=== PATIENT | male | born 1985 | race Caucasian/White ===

== ENCOUNTER 2017-10-15 00:39 | Emergency (ER) | payer SELFPAY ==
[~2017-10-15] VITALS: Ht 177.8 cm; Wt 113.0 kg
[2017-10-15 00:45] VITALS: BP 161/118
[2017-10-15] MEDS ORDERED: HALOPERIDOL LACTATE 5MG/ML VIAL IM STA (01:07)
[2017-10-15] MEDS ORDERED: LORAZEPAM 2MG/ML CPJ IM STA (01:07)
[2017-10-15] MEDS ORDERED: SODIUM CHLORIDE 0.9% 1,000 ML IV ONE (01:07)
[2017-10-15] MEDS ORDERED: DIPHENHYDRAMINE 50MG/ML VIAL IM STA (01:07)
== END 2017-10-15 02:06 | disposition left against medical advice (07) ==
LOC: ER 00:39
DX: T43.621A Poisoning by amphetamines, accidental (unintentional), initial encounter (principal); F15.129 Other stimulant abuse with intoxication, unspecified; R45.1 Restlessness and agitation; Z78.1 Physical restraint status; R00.0 Tachycardia, unspecified; I10 Essential (primary) hypertension; Y93.89 Activity, other specified; Y92.89 Other specified places as the place of occurrence of the external cause
CPT/HCPCS: 99283; J7030